=== PATIENT | female | born 1980 | race Two or more races ===

== ENCOUNTER 2019-12-07 19:18 | Emergency (ER) | payer OTHER ==
[~2019-12-07] VITALS: Ht 162.6 cm; Wt 98.9 kg
[~2019-12-07 19:18] MED LIST: N
[2019-12-07] MEDS ORDERED: FORTAMET500 MG PO (20:04)
[2019-12-07] MEDS ORDERED: LOSARTAN POTASS50 MG PO (20:04)
[2019-12-07] MEDS ORDERED: METHOTREXATE2.5 MG PO (20:06)
== END 2019-12-07 22:15 | disposition home or self-care (01) ==
LOC: ER 19:18
DX: J06.9 Acute upper respiratory infection, unspecified (principal); B96.0 Mycoplasma pneumoniae [M. pneumoniae] as the cause of diseases classified elsewhere

== ENCOUNTER → 2020-09-08 | Outpatient (CLI) | payer OTHER ==
[~2020-09-08] MED LIST changes: +FORTAMET500 MG PO; +LOSARTAN POTASS50 MG PO; +METHOTREXATE2.5 MG PO
== END | disposition home or self-care (01) ==
LOC: SONOGRAMA 08:40
PROVIDERS: ATTEND Pathology Anatomic Pathology & Clinical Pathology
DX: E04.1 Nontoxic single thyroid nodule (principal)

== ENCOUNTER 2020-10-20 10:28 | Outpatient (CLI) | payer OTHER | END 2020-10-20 10:34 | disposition home or self-care (01) | LOC: SONOGRAMA 10:28 | PROVIDERS: ATTEND Pathology Anatomic Pathology & Clinical Pathology | DX: E04.1 Nontoxic single thyroid nodule (principal) ==

== ENCOUNTER 2020-12-09 14:21 | Inpatient (IN) | payer OTHER ==
[~2020-12-09] VITALS: Ht 162.6 cm; Wt 98.9 kg
[2020-12-09] MEDS ORDERED: FOLIC ACID0.8 M1 PO (14:47)
[2020-12-13] MEDS ORDERED: INTESTINEX680 M1 PO (15:44)
[2020-12-13] MEDS ORDERED: AMOX-CLAV 875-1 EACH PO (15:44)
== END 2020-12-13 16:02 | disposition home or self-care (01) | DRG 392 ==
LOC: ER 14:21 → MEDI 12-10 07:53 → SEC-K 12-10 09:08 → MEDI 12-10 13:51
PROVIDERS: ADMIT Internal Medicine; ATTEND Internal Medicine
DX: K57.32 Diverticulitis of large intestine without perforation or abscess without bleeding (principal); E87.6 Hypokalemia

== ENCOUNTER 2021-02-05 19:39 | Emergency (ER) | payer OTHER ==
[~2021-02-05] VITALS: Ht 162.6 cm; Wt 96.6 kg
[~2021-02-05 19:39] MED LIST changes: +AMOX-CLAV 875-1 EACH PO; +FOLIC ACID0.8 M1 PO; +INTESTINEX680 M1 PO
[2021-03-03] MEDS ORDERED: ALLERGY RELIEF10 M3 PO (13:11)
[2021-03-03] MEDS ORDERED: SINGULAIR 10MG10 MG PO (13:11)
[2021-03-03] MEDS ORDERED: BETAMETHASONE D15 G3 TOP (13:11)
== END 2021-02-05 21:18 | disposition home or self-care (01) ==
LOC: ER 19:39
DX: S30.0XXA Contusion of lower back and pelvis, initial encounter (principal); S20.224A Contusion of middle back wall of thorax, initial encounter; M54.2 Cervicalgia; W18.00XA Striking against unspecified object with subsequent fall, initial encounter; Y93.89 Activity, other specified; Y92.512 Supermarket, store or market as the place of occurrence of the external cause; Y99.8 Other external cause status

== ENCOUNTER → 2021-03-03 | Emergency (ER) | payer OTHER ==
[~2021-03-03] VITALS: Ht 162.6 cm; Wt 96.6 kg
[~2021-03-03] MED LIST changes: +ALLERGY RELIEF10 M3 PO; +BETAMETHASONE D15 G3 TOP; +SINGULAIR 10MG10 MG PO
== END | disposition home or self-care (01) ==
LOC: ER 09:08
DX: L50.0 Allergic urticaria (principal); T50.Z95A Adverse effect of other vaccines and biological substances, initial encounter

== ENCOUNTER 2021-03-13 13:17 | Inpatient (IN) | payer OTHER ==
[~2021-03-13] VITALS: Ht 162.6 cm; Wt 96.6 kg
[2021-03-13] MEDS ORDERED: METHOTREXA25 MG/1 M5 (13:30)
[2021-03-16] MEDS ORDERED: PEPCID AC20 MG PO (13:11)
[2021-03-16] MEDS ORDERED: PROTONIX40 MG PO (13:12)
[2021-03-16] MEDS ORDERED: CARAFATE1 GM PO (13:12)
[2021-03-16] MEDS ORDERED: ACYCLOVIR400 MG PO (13:22)
== END 2021-03-16 13:36 | disposition home or self-care (01) | DRG 439 ==
LOC: ER 13:17 → SEC-K 21:27 → SURG 03-14 04:29
PROVIDERS: ADMIT Internal Medicine; ATTEND Internal Medicine
PROC: BW2110Z Computerized Tomography (CT Scan) of Abdomen and Pelvis using Low Osmolar Contrast, Unenhanced and Enhanced (ICD-10-PCS; principal; 2021-03-13)
PROC: BW40ZZZ Ultrasonography of Abdomen (ICD-10-PCS; 2021-03-14)
PROC: 8E0ZXY6 Isolation (ICD-10-PCS; 2021-03-14)
DX: K85.80 Other acute pancreatitis without necrosis or infection (principal); K29.60 Other gastritis without bleeding; N39.0 Urinary tract infection, site not specified; K76.0 Fatty (change of) liver, not elsewhere classified; I10 Essential (primary) hypertension; E11.9 Type 2 diabetes mellitus without complications; L98.8 Other specified disorders of the skin and subcutaneous tissue

== ENCOUNTER 2021-05-19 21:25 | Inpatient (IN) | payer OTHER ==
[~2021-05-19] VITALS: Ht 162.6 cm; Wt 98.9 kg
[~2021-05-19 21:25] MED LIST changes: +ACYCLOVIR400 MG PO; +CARAFATE1 GM PO; +METHOTREXA25 MG/1 M5; +PEPCID AC20 MG PO; +PROTONIX40 MG PO
[2021-05-22] MEDS ORDERED: INTESTINEX680 M1 PO (14:15)
[2021-05-22] MEDS ORDERED: METRONIDAZOLE500 MG PO (14:15)
[2021-05-22] MEDS ORDERED: CEFDINIR300 MG PO (14:18)
== END 2021-05-22 17:18 | disposition home or self-care (01) | DRG 392 ==
LOC: ER 21:25 → MEDI 05-20 09:30 → SEC-K 05-20 09:30 → MEDI 05-20 11:16
PROVIDERS: ADMIT Internal Medicine; ATTEND Internal Medicine
PROC: BW2110Z Computerized Tomography (CT Scan) of Abdomen and Pelvis using Low Osmolar Contrast, Unenhanced and Enhanced (ICD-10-PCS; principal; 2021-05-20)
DX: K57.32 Diverticulitis of large intestine without perforation or abscess without bleeding (principal); N39.0 Urinary tract infection, site not specified; M06.8A Other specified rheumatoid arthritis, other specified site; E11.9 Type 2 diabetes mellitus without complications; Z79.4 Long term (current) use of insulin; I10 Essential (primary) hypertension; Z20.822 Contact with and (suspected) exposure to COVID-19

== ENCOUNTER 2021-07-30 19:40 | Emergency (ER) | payer OTHER ==
[~2021-07-30] VITALS: Ht 162.6 cm; Wt 97.5 kg
[~2021-07-30 19:40] MED LIST changes: +CEFDINIR300 MG PO; +METRONIDAZOLE500 MG PO
[2021-07-30] MEDS ORDERED: PLAQUENIL (20:22)
== END 2021-07-30 21:43 | disposition home or self-care (01) ==
LOC: ER 19:40
DX: M25.59 Pain in other specified joint (principal)

== ENCOUNTER 2021-09-27 06:42 | Emergency (ER) | payer OTHER ==
[~2021-09-27] VITALS: Ht 162.6 cm; Wt 96.6 kg
[~2021-09-27 06:42] MED LIST changes: +PLAQUENIL
[2021-09-27] MEDS ORDERED: PLAQUENIL (06:55)
== END 2021-09-27 12:42 | disposition home or self-care (01) ==
LOC: ER 06:42
DX: K57.32 Diverticulitis of large intestine without perforation or abscess without bleeding (principal); B34.9 Viral infection, unspecified; Z03.818 Encounter for observation for suspected exposure to other biological agents ruled out

== ENCOUNTER 2021-11-17 07:19 | Emergency (ER) | payer OTHER ==
[~2021-11-17] VITALS: Ht 170.2 cm; Wt 104.3 kg
== END 2021-11-17 11:53 | disposition home or self-care (01) ==
LOC: ER 07:19
DX: U07.1 COVID-19 (principal)

== ENCOUNTER 2022-03-09 14:37 | Emergency (ER) | payer OTHER ==
[~2022-03-09] VITALS: Ht 162.6 cm; Wt 95.3 kg
== END 2022-03-09 20:48 | disposition home or self-care (01) ==
LOC: ER 14:37
DX: A49.3 Mycoplasma infection, unspecified site (principal); Z20.822 Contact with and (suspected) exposure to COVID-19; Z88.1 Allergy status to other antibiotic agents

== ENCOUNTER 2022-05-17 16:53 | Emergency (ER) | payer OTHER ==
[~2022-05-17] VITALS: Ht 154.9 cm; Wt 102.1 kg
[2022-05-17] MEDS ORDERED: ZITHROMAX500 MG PO (21:25)
[2022-05-17] MEDS ORDERED: XOPENEX0.63 MG/3 IH (21:25)
[2022-05-17] MEDS ORDERED: MEDROLPACK PO (21:25)
== END 2022-05-17 21:43 | disposition home or self-care (01) ==
LOC: ER 16:53
DX: J45.909 Unspecified asthma, uncomplicated (principal); Z88.1 Allergy status to other antibiotic agents; E11.9 Type 2 diabetes mellitus without complications; Z79.84 Long term (current) use of oral hypoglycemic drugs; I10 Essential (primary) hypertension; Z20.822 Contact with and (suspected) exposure to COVID-19

== ENCOUNTER 2023-07-08 10:23 | Emergency (ER) | payer OTHER ==
[~2023-07-08] VITALS: Ht 162.6 cm; Wt 98.9 kg
[~2023-07-08 10:23] MED LIST changes: +MEDROLPACK PO; +XOPENEX0.63 MG/3 IH; +ZITHROMAX500 MG PO
== END 2023-07-08 14:37 | disposition home or self-care (01) ==
LOC: ER 10:23
DX: M94.0 Chondrocostal junction syndrome [Tietze] (principal); R10.9 Unspecified abdominal pain; I10 Essential (primary) hypertension; Z88.1 Allergy status to other antibiotic agents; Z91.013 Allergy to seafood

== ENCOUNTER 2024-05-23 14:49 | Emergency (ER) | payer OTHER ==
[~2024-05-23] VITALS: Ht 162.6 cm; Wt 96.6 kg
[2024-05-23] MEDS ORDERED: KETOROLAC TROMETHAMINE 60 MG VIAL IM STA (19:17)
[2024-05-23] MEDS ORDERED: OxyCODONE HCL/APAP UD (PERCOCET) PO STA (19:18)
== END 2024-05-23 20:59 | disposition home or self-care (01) ==
LOC: ER 14:50
DX: S20.229A Contusion of unspecified back wall of thorax, initial encounter (principal); W18.39XA Other fall on same level, initial encounter; Y93.89 Activity, other specified; Y92.012 Bathroom of single-family (private) house as the place of occurrence of the external cause; K59.01 Slow transit constipation; Z91.013 Allergy to seafood; Z88.8 Allergy status to other drugs, medicaments and biological substances

== ENCOUNTER 2024-05-25 21:23 | Emergency (ER) | payer OTHER ==
[~2024-05-25] VITALS: Ht 162.6 cm; Wt 94.8 kg
[2024-05-25] MEDS ORDERED: KETOROLAC TROMETHAMINE 30 MG VIAL IV ONE (23:45)
[2024-05-25] MEDS ORDERED: 0.9 % SODIUM CHLORIDE 1,000 ML IV SCH (23:45)
[2024-05-26 00:25] LABS: HEMATOCRIT 38.4 % (36.0-45.00); HEMOGLOBIN 12.7 g/dL (12.0-15.00); MEAN CORPUSCULAR HEMOGLOBIN 29.2 pg (27.00-32.0); MEAN CORPUSCULAR HGB CONC 33.1 g/dl (32.0-36.0); PLATELET COUNT 256 K/uL (150-450); RED BLOOD COUNT 4.36 M/uL (4.00-6.00); RED CELL DISTRIBUTION WIDTH 13.7 % (11.5-14.5)
[2024-05-26 00:50] LABS: BILIRUBIN TOTAL 0.22 mg/dL (0.3-1.2); CALCIUM 9.3 mg/dL (8.5-10.1); CREATININE SERUM 0.73 mg/dL (0.55-1.02); GFR 87.01; GLOBULINA 3.8 G/DL (2.4-3.5); POTASSIUM 3.85 mEq/L (3.5-5.1); TOTAL PROTEIN 7.8 gm/dL (6.4-8.2)
[2024-05-26 00:57] LABS: PH,URINE 6.5 (5.0-8.0); URINE APPEARANCE Clear; URINE BILIRRUBIN Negative (NEGATIVE); URINE BLOOD Negative; URINE COLOR Yellow; URINE GLUCOSE Negative (NEGATIVE); URINE LEUKOCYTE Negative; URINE NITRATE Negative; URINE PROTEIN Negative (NEGATIVE)
[2024-05-26 01:01] LABS: URINE EPITHELIAL CELLS 3.8 uL (0.0-38.8); URINE RBC 8.2 uL (0.0-20.8); URINE WBC 12.3 uL (0.0-23.2)
== END 2024-05-26 04:10 | disposition home or self-care (01) ==
LOC: ER 21:24
PROVIDERS: Emergency Medicine
DX: R14.3 Flatulence (principal); R14.1 Gas pain; R14.2 Eructation; R10.9 Unspecified abdominal pain; I10 Essential (primary) hypertension; E11.9 Type 2 diabetes mellitus without complications; Z79.84 Long term (current) use of oral hypoglycemic drugs; Z88.1 Allergy status to other antibiotic agents; Z91.013 Allergy to seafood

== ENCOUNTER 2025-05-22 15:41 | Emergency (ER) | payer OTHER ==
[~2025-05-22] VITALS: Ht 162.6 cm; Wt 98.9 kg
[2025-05-22] MEDS ORDERED: CEFTRIAXONE SODIUM 1,000 MG VIAL IM STA (18:41)
[2025-05-22] MEDS ORDERED: HYDROCODONE/CHLORPHEN P-STIREX 5 ML ML PO STA (18:41)
[2025-05-22] MEDS ORDERED: KETOROLAC TROMETHAMINE 60 MG VIAL IM STA (18:46)
== END 2025-05-22 19:13 | disposition home or self-care (01) ==
LOC: ER 16:59
DX: J06.9 Acute upper respiratory infection, unspecified (principal); Z91.013 Allergy to seafood; Z88.1 Allergy status to other antibiotic agents